=== PATIENT | female | born 2000 | race Caucasian/White ===

== ENCOUNTER 2024-11-10 06:28 | Day surgery (SDC) | payer OTHER, SELFPAY | END 2024-11-10 14:21 | disposition home or self-care (01) | LOC: GI 06:28 | PROVIDERS: ATTENDING PHYSICIAN Internal Medicine Gastroenterology | DX: Z12.11 Encounter for screening for malignant neoplasm of colon (principal); Z80.0 Family history of malignant neoplasm of digestive organs; Z83.719 Family history of colon polyps, unspecified; K63.5 Polyp of colon; K62.1 Rectal polyp | CPT/HCPCS: 45385; 45380; 88305 ==

== ENCOUNTER 2025-02-12 09:12 | Emergency (ER) | payer OTHER, SELFPAY ==
[2025-02-12 09:13] VITALS: BP 139/89
--- NOTE | 2025-02-12 09:57 | ED.GENMED ---
History of Present Illness
General
Chief Complaint: Skin Surface Trauma
Source: patient and family
Exam Limitations: none
Time Seen by Provider: 02/12/25 09:29
Nursing documentation reviewed up to this point in time: agreed with
History of Present Illness
History of Present Illness:
24-year-old female past medical history of asthma presenting to the emergency department today with concerns of left index finger laceration that got cut while cutting frozen dog food just prior to arrival. The area knife that cut her was very
clean claims. This was rinsed out at home bleeding was difficult to control with prompted her to come to the ER. Denies numbness weakness or additional concerns. She believes her last tetanus shot was within the last few years.
Past History
Past History
ED Past Medical History: Asthma
ED Past Surgical History: None
Social History
Tobacco: Non-smoker
Alcohol: Occasional
Personal: Single
Living: with family
Review of Systems
Review of Systems
Allergies reviewed?: Yes
All Other Systems: ROS reviewed and negative except as documented in HPI and ROS
Phy Exam
Physical Exam
Physical Exam:
GENERAL: Alert , in no apparent distress
EYE: pupils equal and reactive
NECK: Supple, no significant adenopathy.
ENT: o/p clr, mmm.
CARDIAC: Regular rate and rhythm .
LUNGS: Clear breath sounds bilaterally, no acute respiratory distress, no wheezes/rales/rhonchi
ABDOMEN: Soft, without focal tenderness, no r/g, no cvat
NEUROLOGICAL: Alert and oriented, no focal neuro deficits
SKIN: 1.5 cm laceration to the left index finger on the radial aspect just lateral to the nail. Does not involve the nail warm and dry, skin intact.
MUSCULOSKELETAL: No edema, well perfused.
PSYCH: Normal and appropriate interaction.
Course
Vital Signs
Initial and Last Documented VS:
Initial Vital Signs
Temp Pulse Resp BP Pulse Ox
97.5 F 80 20 139/89 96
02/12/25 09:13 02/12/25 09:13 02/12/25 09:13 02/12/25 09:13 02/12/25 09:13
Last Documented Vital Signs
Temp Pulse Resp BP Pulse Ox
97.5 F 80 20 139/89 96
02/12/25 09:13 02/12/25 09:13 02/12/25 09:13 02/12/25 09:13 02/12/25 09:13
Procedures
Laceration Closure
Left Distal Radial Second Finger:
Status of Wound: clean
Size of Wound in cm: 1.5
Description of Wound Edges: sharp
Preparation: cleaned with saline
Anesthesia: 2% Lidocaine and Digital-Regional
Revision/Debridement: routine- no revision and irrigate-direct pressure
Wound exploration: explored to base- no FB and no tendon involvement
Type of Closure: single layer closure and interrupted sutures
Skin Closure Material: 5-0 nylon
Number of sutures: 3
MDM/Problems Addressed
MDM/Problems Addressed:
24-year-old female presenting to the emergency department today with concerns of laceration of her left index finger. This is very clean it was thoroughly irrigated here no signs of foreign body. Closed with 3 stitches will follow-up in 2 weeks
for suture removal. Up-to-date with tetanus shot low risk for infection. Return precautions given.
*Critical Care Note
Total Time (30-74mins, 75-104mins- exclusive of procedures): Not Applicable
ED Attending Note
-
Portions of this chart may have been created with voice recognition software.� Occasional wrong word or��sound alike� substitutions may have occurred due to the inherent limitations of voice recognition software.
Discharge Plan
Departure
Patient Disposition: Home (Routine Discharge)
Date of Disposition: 02/12/25
Time of Disposition: 09:57
Patient with high blood pressure during this ER visit?: No
Condition: Good
Covid-19: Not Applicable
Discharge Problem:
Finger laceration
Instructions: Laceration Repair With Stitches (DC)
Prescriptions:
No Action
cyclobenzaprine 10 MG tablet
10 mg PO TIDPRN PRN (Reason: pain) Qty: 12 0RF
Activity Restrictions/Additional Instructions:
You came to the emergency department today with concerns of a laceration to your left index finger. This was cleaned was cleaned thoroughly here and closed with 3 stitches. Please keep the area clean covered and have sutures removed in 12 to 14
days. Return for any worsening, new or concerning symptoms.
Interventions
Interventions:
*Risk Screen - Suicide Last Done: 02/12/25 09:13
*General Assessment Last Done: 02/12/25 09:13
*Nursing Disposition Last Done: 02/12/25 10:13
ED-Skin Assessment Last Done: 02/12/25 10:11
Discharge Date and Time
Discharge Date/Time: 02/12/25 10:14
Print Language: CROATIAN
--- NOTE | 2025-02-12 10:13 | EDRN ---
L index finger wrapped with gauze
== END 2025-02-12 10:14 | disposition home or self-care (01) ==
LOC: EMR 09:12
PROVIDERS: EMERGENCY PHYSICIAN Student in an Organized Health Care Education/Training Program; FAMILY PHYSICIAN Family Medicine
DX: S61.211A Laceration without foreign body of left index finger without damage to nail, initial encounter (principal); W26.0XXA Contact with knife, initial encounter; J45.909 Unspecified asthma, uncomplicated
CPT/HCPCS: 12001; 99282